=== PATIENT | male | born 1955 | race Caucasian/White ===

== ENCOUNTER → 2023-08-06 06:32 | Day surgery (SDC) | payer OTHER, SELFPAY | LOC: GI 06:32 | PROVIDERS: ATTENDING PHYSICIAN Internal Medicine Gastroenterology; FAMILY PHYSICIAN Family Medicine | DX: Z12.11 Encounter for screening for malignant neoplasm of colon (principal); Z86.010 Personal history of colon polyps; K57.30 Diverticulosis of large intestine without perforation or abscess without bleeding; K64.8 Other hemorrhoids; D12.2 Benign neoplasm of ascending colon; D12.3 Benign neoplasm of transverse colon; D12.4 Benign neoplasm of descending colon; K63.5 Polyp of colon | CPT/HCPCS: 45385; 45381; 45380; 88305 ==

== ENCOUNTER → 2023-10-19 12:02 | Outpatient (REF) | payer OTHER, SELFPAY | LOC: MRI 3T 12:02 | PROVIDERS: ATTENDING PHYSICIAN Surgery; FAMILY PHYSICIAN Family Medicine | DX: R97.20 Elevated prostate specific antigen [PSA] (principal) | CPT/HCPCS: 72197; A9575 ==

== ENCOUNTER → 2024-01-17 08:13 | Outpatient (REF) | payer OTHER, SELFPAY | LOC: HWRAD 08:13 | PROVIDERS: ATTENDING PHYSICIAN Internal Medicine Gastroenterology; FAMILY PHYSICIAN Family Medicine | DX: R94.5 Abnormal results of liver function studies (principal) | CPT/HCPCS: 76700 ==

== ENCOUNTER → 2024-09-07 08:42 | Outpatient (REF) | payer OTHER, SELFPAY | LOC: RCS 08:42 | PROVIDERS: ATTENDING PHYSICIAN Family Medicine | DX: I10 Essential (primary) hypertension (principal); R73.03 Prediabetes; E78.2 Mixed hyperlipidemia; I70.0 Atherosclerosis of aorta; R07.9 Chest pain, unspecified | CPT/HCPCS: 93017 ==

== ENCOUNTER → 2024-09-19 14:34 | Outpatient (REF) | payer OTHER, SELFPAY | LOC: RCS 14:34 | PROVIDERS: ATTENDING PHYSICIAN Family Medicine | DX: R73.03 Prediabetes (principal); I10 Essential (primary) hypertension; E78.2 Mixed hyperlipidemia; I70.0 Atherosclerosis of aorta; R07.9 Chest pain, unspecified | CPT/HCPCS: 93306 ==

== ENCOUNTER → 2024-12-26 07:20 | Outpatient (REF) | payer OTHER, SELFPAY | LOC: PET 07:20 | PROVIDERS: ATTENDING PHYSICIAN Internal Medicine Cardiovascular Disease | DX: R06.09 Other forms of dyspnea (principal) | CPT/HCPCS: 78431; A9555; J2785 ==

== ENCOUNTER → 2024-12-27 08:14 | Outpatient (REF) | payer OTHER, SELFPAY | LOC: RAD 08:14 | PROVIDERS: ATTENDING PHYSICIAN Internal Medicine Gastroenterology; FAMILY PHYSICIAN Family Medicine | DX: K76.0 Fatty (change of) liver, not elsewhere classified (principal) | CPT/HCPCS: 76700 ==

== ENCOUNTER 2025-02-14 06:03 | Day surgery (SDC) | payer OTHER, SELFPAY ==
[2025-02-14] VITALS (8 sets, daily range): BP systolic 115–158; BP diastolic 53–84; BMI 34.0
[2025-02-14] MEDS: TYLENOL 1000 MG PO (06:38)
[2025-02-14] MEDS: NORMOSOL-R/PLASMALYTE-A 1000 IV (06:40)
== END 2025-02-14 09:47 | disposition home or self-care (01) ==
LOC: SDS 06:03
PROVIDERS: ATTENDING PHYSICIAN Surgery
DX: D17.0 Benign lipomatous neoplasm of skin and subcutaneous tissue of head, face and neck (principal); D17.1 Benign lipomatous neoplasm of skin and subcutaneous tissue of trunk; D23.9 Other benign neoplasm of skin, unspecified; E66.01 Morbid (severe) obesity due to excess calories; J44.9 Chronic obstructive pulmonary disease, unspecified
CPT/HCPCS: 21552; 88304; 88311